=== PATIENT | male | born 1960 | race Caucasian/White ===

== ENCOUNTER → 2017-02-16 | Outpatient (CLI) | payer BC | END | disposition home or self-care (01) | LOC: C.LABPBG 12:06 | PROVIDERS: ATTEND Neuromusculoskeletal Medicine & OMM | DX: M79.675 Pain in left toe(s) (principal) ==

== ENCOUNTER → 2017-02-16 | Outpatient (CLI) | payer BC ==
--- NOTE | 2017-02-16 14:41 | DIAGNOSTIC IMAGING REPORT ---
LEFT FOOT 3 VIEWS CLINICAL HISTORY: First toe pain. FINDINGS: 3 views of the left foot are obtained. No prior studies are available for comparison at the time of dictation. The skeletal structures appear demineralized. No fracture is seen. 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 The joint spaces are otherwise preserved. The overlying soft tissues are within normal limits. IMPRESSION: 1. No acute bony abnormality is seen in the left foot. 2. 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 Electronically signed by: Russel Garner M.D. 02/16/2017 2:40 PM Dictated Date/Time: 02/16/2017 2:39 PM
== END | disposition home or self-care (01) ==
LOC: C.RAD 14:09
PROVIDERS: ATTEND Neuromusculoskeletal Medicine & OMM
DX: M79.675 Pain in left toe(s) (principal)